=== PATIENT | male | born 1945 | race African-American/Black ===

== ENCOUNTER 2019-06-17 10:40 | Inpatient (IN) | payer OTHER ==
[~2019-06-17] VITALS: Ht 170.2 cm; Wt 58.5 kg
[2019-06-24] MEDS ORDERED: CLOPIDOGREL BIS75 MG PO (15:46)
[2019-06-24] MEDS ORDERED: LIPITOR40 MG PO (15:47)
[2019-06-24] MEDS ORDERED: AMLODIPINE BESYL5 MG PO (15:47)
== END 2019-06-24 15:55 | disposition home or self-care (01) | DRG 65 ==
LOC: ER 10:40 → MEDJ 06-18 15:08 → MEDI 06-18 15:08 → MEDJ 06-19 14:37
PROVIDERS: ADMIT Internal Medicine
PROC: B030ZZZ Magnetic Resonance Imaging (MRI) of Brain (ICD-10-PCS; principal; 2019-06-18)
PROC: B345ZZZ Ultrasonography of Bilateral Common Carotid Arteries (ICD-10-PCS; 2019-06-18)
PROC: B348ZZZ Ultrasonography of Bilateral Internal Carotid Arteries (ICD-10-PCS; 2019-06-18)
PROC: B245ZZZ Ultrasonography of Left Heart (ICD-10-PCS; 2019-06-18)
DX: I63.02 Cerebral infarction due to thrombosis of basilar artery (principal); G81.04 Flaccid hemiplegia affecting left nondominant side; N39.0 Urinary tract infection, site not specified; L03.116 Cellulitis of left lower limb; L03.115 Cellulitis of right lower limb; I63.119 Cerebral infarction due to embolism of unspecified vertebral artery; I10 Essential (primary) hypertension; R29.702 NIHSS score 2; Z59.0 Homelessness; F10.20 Alcohol dependence, uncomplicated; F12.90 Cannabis use, unspecified, uncomplicated; S00.83XA Contusion of other part of head, initial encounter; S80.12XA Contusion of left lower leg, initial encounter; W18.30XA Fall on same level, unspecified, initial encounter; R40.2412 Glasgow coma scale score 13-15, at arrival to emergency department
CPT/HCPCS: 70544